=== PATIENT | male | born 1940 | race Caucasian/White ===

== ENCOUNTER 2025-02-27 11:42 | Emergency (ER) | payer MEDICARE ==
[2025-02-27] MEDS: HYDROmorphone 1 MG/ML Syringe IM ONE (13:33)
[2025-02-27] MEDS: Acetaminophen/oxyCODONE 325-5 MG Tab PO PRN (16:53)
== END 2025-02-27 17:35 | disposition home or self-care (01) ==
LOC: JP.ED 11:42
DX: S76.112A Strain of left quadriceps muscle, fascia and tendon, initial encounter (principal); Z79.82 Long term (current) use of aspirin; Z79.899 Other long term (current) drug therapy; W19.XXXA Unspecified fall, initial encounter
CPT/HCPCS: 73562; 73721; 96372; 99284; A9270; J1171; 99283